=== PATIENT | male | born 1995 | race Caucasian/White ===

== ENCOUNTER → 2018-04-09 | Outpatient (CLI) | payer OTHER ==
--- NOTE | 2018-04-09 18:32 | MR ---
EXAMINATION TYPE: MR knee RT wo con DATE OF EXAM: 04/09/2018 COMPARISON: NONE HISTORY: Right knee pain per order. All over pain and swelling per patient. TECHNIQUE: Multiplanar, multisequence images of the knee is performed without IV contrast. FINDINGS: MEDIAL MENISCUS: Anterior and posterior horns are intact without tear. LATERAL MENISCUS: Anterior and posterior horns are intact without tear. CRUCIATE LIGAMENTS: The anterior and posterior cruciate ligaments are intact and unremarkable. COLLATERAL LIGAMENTS: The medial collateral ligament and lateral collateral ligament complex are inta ct and unremarkable. EXTENSOR MECHANISM: Visualized quadriceps and patellar tendons are intact. EFFUSION: No significant suprapatellar joint effusion. POPLITEAL CYST: No popliteal/dee cyst. TRICOMPARTMENT SPACES: Tricompartment joint spaces are preserved. No significant spurring is present. CARTILAGE: Tricompartment articular cartilage is maintained. BONE MARROW SIGNAL: No focal abnormal marrow signal is appreciated. OTHER: No additional significant abnormality is appreciated. IMPRESSION: No meniscal or ligamentous tear is seen. Unremarkable study.
== END | disposition home or self-care (01) ==
LOC: RADMRIMAIN 08:54
PROVIDERS: ATTEND Internal Medicine
DX: M25.561 Pain in right knee (principal)

== ENCOUNTER → 2018-05-17 | Outpatient (CLI) | payer OTHER ==
--- NOTE | 2018-05-17 15:04 | XR ---
Left foot and left leg HISTORY: Trauma and pain 3 views of the left foot and 2 views of the left leg submitted. The left foot show soft tissue swelling. Alignment, joint spaces, bone mineralization are maintained with exception of the tarsal metatarsal joint of the first digit, suspect there may be bridging osteo phytes. Left leg shows no fracture or dislocation, soft tissue swelling noted. IMPRESSION: Soft tissue swelling. No acute fracture or dislocation.
== END ==
LOC: RADXRMAIN 11:41
PROVIDERS: ATTEND Emergency Medicine
DX: M79.89 Other specified soft tissue disorders (principal)

== ENCOUNTER → 2018-05-23 | Outpatient (CLI) | payer OTHER ==
--- NOTE | 2018-05-23 09:51 | CT ---
EXAMINATION TYPE: CT foot LT wo con DATE OF EXAM: 05/23/2018 COMPARISON: Radiograph 05/17/2018 HISTORY: 22-year-old male Left mid foot pain post injury 7 days ago TECHNIQUE: Contiguous axial scanning of the left foot without IV contrast. Coronal and sagittal recon structions performed. CT DLP: 202 mGycm Automated exposure control for dose reduction was used. FINDINGS: There is an os intermetatarseum interposed along the dorsal aspect of the first-second intermetatarsa l joint There is some lateral sided soft tissue swelling overlying the fifth metatarsal head could represent early bunion formation. Os trigonum incidentally noted. No acute fracture, subluxation, or dislocation seen. IMPRESSION: 1. CORTICATED BONE FRAGMENT INTERPOSED ALONG THE DORSAL ASPECT OF THE FIRST-SECOND INTERMETATARSAL FILI INT COMPATIBLE WITH ACCESSORY OSSICLE, OS INTERMETATARSEUM. 2. SOME SOFT TISSUE SWELLING LATERALLY OVERLYING THE FIFTH METATARSAL HEAD COULD REPRESENT EARLY BUNI ONETTE FORMATION. 3. NO ACUTE OSSEOUS ABNORMALITY SEEN.
== END | disposition home or self-care (01) ==
LOC: RADCTMAIN 09:16
PROVIDERS: ATTEND Emergency Medicine
DX: M79.89 Other specified soft tissue disorders (principal)

== ENCOUNTER → 2018-06-14 | Outpatient (CLI) | payer OTHER ==
--- NOTE | 2018-06-15 01:31 | MR ---
EXAMINATION TYPE: MR foot LT wo con DATE OF EXAM: 06/14/2018 COMPARISON: None HISTORY: Left foot pain for one month Standard multiplanar, multisequence MRI departmental protocol Multiplanar, multisequence images of the left foot were acquired. FINDINGS: Plantar fascia appears normal. Achilles tendon is intact. There is intact medial and latera l flexor tendons of the foot. Extensor tendons appear intact. I see no bony destructive process. Dyer tarsals are intact. There is no evidence of a fracture. There is subcutaneous edema in the forefoot. The collateral ligaments of the ankle are intact. Ankle mortise is anatomic. The interphalangeal join t spaces appear fairly normal. There is no subluxation. I see no focal bone destruction. There is no evidence of a soft tissue mass. IMPRESSION: There is subcutaneous edema over the forefoot. No evidence of ligamentous or tendon tear. No fracture .
== END ==
LOC: RADMRIMAIN 19:54
PROVIDERS: ATTEND Emergency Medicine
DX: R60.9 Edema, unspecified (principal)

== ENCOUNTER → 2019-08-01 | Outpatient (CLI) | payer BC | END | disposition home or self-care (01) | LOC: CPPFTMAIN 12:44 | PROVIDERS: ATTEND Nurse Practitioner Adult Health | DX: J45.909 Unspecified asthma, uncomplicated (principal); G70.9 Myoneural disorder, unspecified; R04.2 Hemoptysis | CPT/HCPCS: 94060; 94726; 94729 ==

== ENCOUNTER → 2019-08-01 | Outpatient (CLI) | payer BC ==
[2019-08-01 15:02] LABS: Basophils # (A) 0.1 k/uL (0-0.2); Basophils % (A) 1 %; Eosinophils # (A) 0.3 k/uL (0-0.7); Eosinophils % (A) 4 %; HCT 46.6 % (39.0-53.0); HGB 15.3 gm/dL (13.0-17.5); Lymphocytes # (A) 1.8 k/uL (1.0-4.8); Lymphocytes % (A) 25 %; MCHC 32.9 g/dL (31.0-37.0); MCV 88.2 fL (80.0-100.0); Monocytes # (A) 0.3 k/uL (0-1.0); Monocytes % (A) 5 %; Neutrophils # (A) 4.8 k/uL (1.3-7.7); Neutrophils % (A) 64 %; Platelet Count 246 k/uL (150-450); RBC 5.28 m/uL (4.30-5.90); RDW 12.6 % (11.5-15.5); WBC 7.5 k/uL (3.8-10.6)
--- NOTE | 2019-08-01 15:32 | XR ---
EXAMINATION TYPE: XR chest 2V DATE OF EXAM: 08/01/2019 COMPARISON: Chest x-ray 09/10/2015 HISTORY: R04.2, hemoptysis TECHNIQUE: Frontal and lateral views of the chest are obtained. FINDINGS: There is no focal air space opacity, pleural effusion, or pneumothorax seen. The cardiac silhouette size is within normal limits. The osseous structures are intact. IMPRESSION: No acute cardiopulmonary process.
[2019-08-01 18:06] LABS: Erythrocyte Sedimentation Rate 8 mm/hr (0-15)
[2019-08-01 19:21] LABS: BUN/Creat Ratio 11.25 Ratio (12.00-20.00); C Reactive Protein <0.4 mg/dL (0.0-0.8); Calcium 9.5 mg/dL (8.7-10.3); Carbon Dioxide 27.3 mmol/L (21.6-31.8); Chloride 105 mmol/L (96-109); Chol/HDL Ratio 3.56; Cholesterol 185 mg/dL (0-200); Glucose 100 mg/dL (70-110); LDL Cholesterol,Calculated 113.6 mg/dL (0.0-131.0); Non-African American GFR(CKD) 126.8 (60.0-200.0); Sodium 140 mmol/L (135-145)
== END | disposition home or self-care (01) ==
LOC: LABWHC1 13:44
PROVIDERS: ATTEND Nurse Practitioner Adult Health
DX: R04.2 Hemoptysis (principal); J45.991 Cough variant asthma
CPT/HCPCS: 36415; 71046; 80048; 80061; 83970; 85025; 85652; 86140

== ENCOUNTER → 2019-08-14 | Outpatient (CLI) | payer BC ==
--- NOTE | 2019-08-15 03:43 | US ---
EXAMINATION TYPE: US thyroid st tissue head/neck DATE OF EXAM: 08/14/2019 COMPARISON: NONE CLINICAL HISTORY: 23-year-old male R94.6 Abnormal thyroid lab R22.0. Swelling, mass. TECHNIQUE: Multiple sonographic images of the thyroid gland are obtained. FINDINGS: GLAND SIZE: Right Lobe: 5.3 x 1.8 x 1.4 cm Overall Parenchyma: homogenous Left Lobe: 4.8 x 0.9 x 1.4 cm Overall Parenchyma: homogeneous Isthmus Thickness: 0.2 cm NODULES RIGHT: # of nodules measured on right: 0 LEFT: # of nodules measured on left: 0 ISTHMUS: # of nodules measured in the isthmus: 0 Bilateral neck scanned, no evidence of lymphadenopathy. Scientific Informatics Leader notes: Submandibular on left at patients area of pain also scanned, no abnormality noted. IMPRESSION: 1. Borderline to mild thyromegaly without discrete nodule. 2. Additional targeted scanning along the left submandibular region at the site of patient's pain. No discrete sonographic abnormality is noted in this region.
== END | disposition home or self-care (01) ==
LOC: RADUSWWP 16:30
PROVIDERS: ATTEND Nurse Practitioner Adult Health
DX: E01.0 Iodine-deficiency related diffuse (endemic) goiter (principal)
CPT/HCPCS: 76536

== ENCOUNTER → 2020-05-20 | Outpatient (CLI) | payer BC, OTHER | END | disposition home or self-care (01) | LOC: LABWHC1 12:11 | PROVIDERS: ATTEND Family Medicine | DX: Z20.828 Contact with and (suspected) exposure to other viral communicable diseases (principal) | CPT/HCPCS: U0003; C9803 ==

== ENCOUNTER → 2020-12-06 | Outpatient (CLI) | payer BC | END | disposition home or self-care (01) | LOC: LABWHC1 15:32 | PROVIDERS: ATTEND Nurse Practitioner Adult Health | DX: Z20.822 Contact with and (suspected) exposure to COVID-19 (principal); R50.9 Fever, unspecified; R06.02 Shortness of breath; R09.81 Nasal congestion | CPT/HCPCS: U0003; C9803; U0005 ==

== ENCOUNTER → 2020-12-12 | Outpatient (CLI) | payer BC ==
--- NOTE | 2020-12-12 12:42 | XR ---
EXAMINATION TYPE: XR chest 2V DATE OF EXAM: 12/12/2020 COMPARISON: 08/01/2019 TECHNIQUE: PA and lateral views submitted. HISTORY: Cough FINDINGS: The lungs are clear and there is no pneumothorax, pleural effusion, or focal pneumonia. Heart size normal. No overt failure. Interstitial markings are stable. IMPRESSION: 1. No acute process.
== END | disposition home or self-care (01) ==
LOC: RADXRMAIN 12:14
PROVIDERS: ATTEND Internal Medicine
DX: J45.901 Unspecified asthma with (acute) exacerbation (principal)
CPT/HCPCS: 71046

== ENCOUNTER 2021-03-01 14:42 | Emergency (ER) | payer BC ==
[2021-03-01 14:57] VITALS: RESP 18; TEMP 98.4
--- NOTE | 2021-03-01 15:14 | ED ---
General Adult HPI - General Chief complaint: Chest Pain Stated complaint: chest pain, coughing up blood Time Seen by Provider: 03/01/21 15:13 Source: patient Mode of arrival: wheelchair Limitations: no limitations - History of Present Illness Initial comments: Patient presents to the ED complaining of having intermittent chest pain for the past couple of days. Patient states that his chest pain is in his central chest and is worse when eating. Patient denies having any chest pain currently. Patient states that he has a history of acid reflux, and he states that he has had similar chest pain intermittently over the past 4 years or so. Patient s tates that he only came to the ED today because his girlfriend made him. Patient states that he is on medication for his acid reflux. Patient also states that he has had a cough for the past couple of months, and he states he has noticed blood at times when coughing. Patient also states that he has noted blood in his stool intermittently over the past couple months. Patient denies trauma or injury, fever or chills, headache, focal neuro deficit, neck/arm/jaw/back pain, pleuritic pain, dyspnea, palpitations, dizziness, nausea/vomiting/diaphoresis, abdominal pain, diarrhea or constipation, dysuria or hematuria, urinary symptoms, leg or calf swelling or pain, or any other symptoms or complaints. Patient denies excessive NSAID or aspirin use. Patient also denies anticoagulant medication use. - Related Data Home Medications Medication Instructions Recorded Confirmed Citalopram Hydrobromide [CeleXA] 30 mg PO DAILY 03/01/21 03/01/21 Pantoprazole Sodium [Protonix] 40 mg PO DAILY 03/01/21 03/01/21 Allergies Allergy/AdvReac Type Severity Reaction Status Date / Time No Known Allergies Allergy Verified 03/01/21 15:32 Review of Systems ROS Statement: Those systems with pertinent positive or pertinent negative responses have been documented in the HPI. ROS Other: All systems not noted in ROS Statement are negative. Past Medical History Past Medical History: No Reported History History of Any Multi-Drug Resistant Organisms: MRSA Date of last positivie culture/infection: 2008 MDRO Source:: left leg Past Surgical History: No Surgical Hx Reported Additional Past Surgical History / Comment(s): retinal detachment Past Psychological History: ADD/ADHD Smoking Status: Never smoker Past Alcohol Use History: None Reported Past Drug Use History: Marijuana General Exam Limitations: no limitations General appearance: alert, in no apparent distress Head exam: Present: atraumatic, normocephalic Eye exam: Present: normal appearance, EOMI ENT exam: Present: mucous membranes moist Neck exam: Present: other (Trachea is in midline) Respiratory exam: Present: normal lung sounds bilaterally. Absent: respiratory distress, wheezes, rales, rhonchi, stridor, chest wall tenderness Cardiovascular Exam: Present: regular rate, normal rhythm, normal heart sounds, other (Normal radial pulses bilaterally) GI/Abdominal exam: Present: soft. Absent: distended, tenderness, guarding Extremities exam: Present: other (Negative Homans sign bilaterally). Absent: tenderness, pedal edema, calf tenderness Neurological exam: Present: alert, oriented X3. Absent: motor sensory deficit Psychiatric exam: Present: normal affect, normal mood Skin exam: Present: warm, dry, intact, normal color Course Vital Signs 03/01/21 03/01/21 03/01/21 14:55 15:56 16:00 Temperature 98.4 F Pulse Rate 113 H 80 Respiratory 18 18 18 Rate Blood Pressure 128/85 109/66 O2 Sat by Pulse 98 97 Oximetry - Reevaluation(s) Reevaluation #1: 03/01/21 17:27 Patient remains alert and breathing comfortably with a normal room air oxygen saturation. Patient's tachycardia has resolved. Patient continues to deny having any chest pain or symptoms while in the ED. Patient is aware of his test results, and he feels comfortable going home at this time. Patient was coun seled about chest pain, as well as hemoptysis and GI bleeding. Patient was clearly explained return and follow-up instructions, and he was instructed to have a low threshold for return to the emergency department should his symptoms worsen. Patient was also instructed to follow up closely with his primary care provider. Patient feels comfortable with this plan. EKG Findings - EKG Comments: EKG Findings:: Normal sinus rhythm, ventricular rate of 79 bpm, no ectopy, normal MN and QRS intervals, normal QT interval, normal axis, no ST or T-wave abnormality Medical Decision Making - Medical Decision Making Patient's EKG, chest x-ray and labs are all fairly unremarkable. Patient's vital signs are reassuring. Patient's d-dimer and troponin are negative. Patient's hemoglobin and BUN are within normal limits. I do not suspect any significant hemorrhaging or an emergent medical condition at this time. - Lab Data Result diagrams: 03/01/21 15:53 03/01/21 15:53 Lab Results 03/01/21 03/01/21 03/01/21 Range/Units 15:53 15:53 15:53 WBC 9.5 (3.8-10.6) k/uL RBC 4.60 (4.30-5.90) m/uL Hgb 14.2 (13.0-17.5) gm/dL Hct 41.5 (39.0-53.0) % MCV 90.3 (80.0-100.0) fL MCH 30.9 (25.0-35.0) pg MCHC 34.3 (31.0-37.0) g/dL RDW 12.6 (11.5-15.5) % Plt Count 250 (150-450) k/uL MPV 6.6 Neutrophils % 70 % Lymphocytes % 16 % Monocytes % 4 % Eosinophils % 8 % Basophils % 1 % Neutrophils # 6.7 (1.3-7.7) k/uL Lymphocytes # 1.5 (1.0-4.8) k/uL Monocytes # 0.4 (0-1.0) k/uL Eosinophils # 0.7 (0-0.7) k/uL Basophils # 0.1 (0-0.2) k/uL PT 10.1 (9.0-12.0) sec INR 0.9 (<1.2) APTT 22.1 (22.0-30.0) sec D-Dimer 0.31 (<0.60) mg/L FEU Sodium 137 (137-145) mmol/L Potassium 4.0 (3.5-5.1) mmol/L Chloride 106 (98-107) mmol/L Carbon Dioxide 23 (22-30) mmol/L Anion Gap 8 mmol/L BUN 12 (9-20) mg/dL Creatinine 0.64 L (0.66-1.25) mg/dL Est GFR (CKD-EPI)AfAm >90 (>60 ml/min/1.73 sqM) Est GFR (CKD-EPI)NonAf >90 (>60 ml/min/1.73 sqM) Glucose 94 (74-99) mg/dL Calcium 9.8 (8.4-10.2) mg/dL Total Bilirubin 0.3 (0.2-1.3) mg/dL AST 28 (17-59) U/L ALT 37 (4-49) U/L Alkaline Phosphatase 56 (38-126) U/L Troponin I (0.000-0.034) ng/mL NT-Pro-B Natriuret Pep pg/mL Total Protein 6.6 (6.3-8.2) g/dL Albumin 3.8 (3.5-5.0) g/dL 03/01/21 03/01/21 Range/Units 15:53 15:53 WBC (3.8-10.6) k/uL RBC (4.30-5.90) m/uL Hgb (13.0-17.5) gm/dL Hct (39.0-53.0) % MCV (80.0-100.0) fL MCH (25.0-35.0) pg MCHC (31.0-37.0) g/dL RDW (11.5-15.5) % Plt Count (150-450) k/uL MPV Neutrophils % % Lymphocytes % % Monocytes % % Eosinophils % % Basophils % % Neutrophils # (1.3-7.7) k/uL Lymphocytes # (1.0-4.8) k/uL Monocytes # (0-1.0) k/uL Eosinophils # (0-0.7) k/uL Basophils # (0-0.2) k/uL PT (9.0-12.0) sec INR (<1.2) APTT (22.0-30.0) sec D-Dimer (<0.60) mg/L FEU Sodium (137-145) mmol/L Potassium (3.5-5.1) mmol/L Chloride (98-107) mmol/L Carbon Dioxide (22-30) mmol/L Anion Gap mmol/L BUN (9-20) mg/dL Creatinine (0.66-1.25) mg/dL Est GFR (CKD-EPI)AfAm (>60 ml/min/1.73 sqM) Est GFR (CKD-EPI)NonAf (>60 ml/min/1.73 sqM) Glucose (74-99) mg/dL Calcium (8.4-10.2) mg/dL Total Bilirubin (0.2-1.3) mg/dL AST (17-59) U/L ALT (4-49) U/L Alkaline Phosphatase (38-126) U/L Troponin I <0.012 (0.000-0.034) ng/mL NT-Pro-B Natriuret Pep <11 pg/mL Total Protein (6.3-8.2) g/dL Albumin (3.5-5.0) g/dL - Radiology Data Radiology results: report reviewed (Chest x-ray: Normal chest) Disposition Clinical Impression: Chest pain Narrative: Reported hemoptysis and rectal bleeding Disposition: HOME SELF-CARE Condition: Stable Instructions (If sedation given, give patient instructions): Chest Pain (ED), Gastrointestinal Bleeding (ED), Hemoptysis (ED) Additional Instructions: Return to the ER immediately should you develop new or worsening pain, increased shortness of breath, increased bleeding, feeling dizzy or faint, a fever, or new or worsening symptoms. Follow up closely with your primary care provider. Is patient prescribed a controlled substance at d/c from ED?: No Referrals: Solitario Merrill MD [Primary Care Provider] - 1-2 days Time of Disposition: 17:29
[2021-03-01 15:59] LABS: Basophils # (A) 0.1 k/uL (0-0.2); Basophils % (A) 1 %; Eosinophils # (A) 0.7 k/uL (0-0.7); Eosinophils % (A) 8 %; HCT 41.5 % (39.0-53.0); HGB 14.2 gm/dL (13.0-17.5); Lymphocytes # (A) 1.5 k/uL (1.0-4.8); Lymphocytes % (A) 16 %; MCH 30.9 pg (25.0-35.0); MCHC 34.3 g/dL (31.0-37.0); MCV 90.3 fL (80.0-100.0); Mean Platelet Volume 6.6; Monocytes # (A) 0.4 k/uL (0-1.0); Monocytes % (A) 4 %; Neutrophils # (A) 6.7 k/uL (1.3-7.7); Neutrophils % (A) 70 %; Platelet Count 250 k/uL (150-450); RDW 12.6 % (11.5-15.5); WBC 9.5 k/uL (3.8-10.6)
[2021-03-01 16:12] LABS: ALT 37 U/L (4-49); AST 28 U/L (17-59); African American GFR (CKD) >90 (>60 ml/min/1.73 sqM); Albumin 3.8 g/dL (3.5-5.0); Alkaline Phosphatase 56 U/L (38-126); Anion Gap 8 mmol/L; Blood Urea Nitrogen 12 mg/dL (9-20); Calcium 9.8 mg/dL (8.4-10.2); Carbon Dioxide 23 mmol/L (22-30); Chloride 106 mmol/L (98-107); Glucose 94 mg/dL (74-99); Non-African American GFR(CKD) >90 (>60 ml/min/1.73 sqM); Sodium 137 mmol/L (137-145); Total Bilirubin 0.3 mg/dL (0.2-1.3); Total Protein 6.6 g/dL (6.3-8.2)
[2021-03-01 16:20] LABS: INR 0.9 (<1.2); Partial Thromboplastin Time 22.1 sec (22.0-30.0); Prothrombin Time 10.1 sec (9.0-12.0)
--- NOTE | 2021-03-01 16:26 | XR ---
EXAMINATION TYPE: XR chest 2V DATE OF EXAM: 03/01/2021 COMPARISON: 12/12/2020 HISTORY: Chest pain TECHNIQUE: 2 views FINDINGS: Heart and mediastinum are normal. Lungs are clear. Diaphragm is normal. Bony thorax appears normal. IMPRESSION: Normal chest.
[2021-03-01 17:39] VITALS: BP 122/86; PULSE 73
== END 2021-03-01 17:39 | disposition home or self-care (01) ==
LOC: EC 14:42
DX: R07.89 Other chest pain (principal); K21.9 Gastro-esophageal reflux disease without esophagitis; Z79.899 Other long term (current) drug therapy
CPT/HCPCS: 36415; 71046; 80053; 83880; 84484; 85025; 85379; 85610; 85730; 93005; 99285

== ENCOUNTER 2021-04-07 13:12 | Emergency (ER) | payer BC ==
[2021-04-07 15:23] VITALS: RESP 18; TEMP 98.5
[2021-04-07 15:37] LABS: Basophils # (A) 0.1 k/uL (0-0.2); Basophils % (A) 1 %; Eosinophils # (A) 0.5 k/uL (0-0.7); Eosinophils % (A) 7 %; HCT 42.8 % (39.0-53.0); HGB 14.8 gm/dL (13.0-17.5); Lymphocytes # (A) 1.7 k/uL (1.0-4.8); Lymphocytes % (A) 22 %; MCH 29.9 pg (25.0-35.0); MCHC 34.5 g/dL (31.0-37.0); MCV 86.6 fL (80.0-100.0); Mean Platelet Volume 6.8; Monocytes # (A) 0.3 k/uL (0-1.0); Monocytes % (A) 5 %; Neutrophils # (A) 4.8 k/uL (1.3-7.7); Neutrophils % (A) 64 %; Platelet Count 312 k/uL (150-450); RBC 4.94 m/uL (4.30-5.90); RDW 12.4 % (11.5-15.5); WBC 7.5 k/uL (3.8-10.6)
[2021-04-07 15:51] LABS: ALT 30 U/L (4-49); AST 26 U/L (17-59); African American GFR (CKD) >90 (>60 ml/min/1.73 sqM); Albumin 4.1 g/dL (3.5-5.0); Alkaline Phosphatase 50 U/L (38-126); Anion Gap 8 mmol/L; Blood Urea Nitrogen 10 mg/dL (9-20); Calcium 9.4 mg/dL (8.4-10.2); Carbon Dioxide 23 mmol/L (22-30); Chloride 107 mmol/L (98-107); Glucose 91 mg/dL (74-99); Non-African American GFR(CKD) >90 (>60 ml/min/1.73 sqM); Potassium 4.2 mmol/L (3.5-5.1); Sodium 138 mmol/L (137-145); Total Bilirubin 0.3 mg/dL (0.2-1.3)
--- NOTE | 2021-04-07 16:50 | ED ---
General Adult HPI - General Chief complaint: GI Bleed Stated complaint: Rectal Bleeding Time Seen by Provider: 04/07/21 16:37 Source: patient, family Limitations: no limitations - History of Present Illness Initial comments: Dictation was produced using [employer] dictation software. please excuse any grammatical, word or spelling errors. Chief Complaint: 25-year-old male presents with black stools History of Present Illness: 25-year-old male who presents to the emergency Department with on-and-off episodes of black stools. Patient was diagnosed with a peptic ulcer couple months ago seen on endoscope done at [facility]. Patient has been taking Carafate recently. He has been having on and off black stools over the last several weeks. He contacted his primary care doctor who instructed patient to come to the emergency room to have his hemoglobin check. Denies any nausea vomiting or lightheadedness. He has no pain. The ROS documented in this emergency department record has been reviewed and confirmed by me. Those systems with pertinent positive or negative responses have been documented in the HPI. All other systems are other negative and/or noncontributory. PHYSICAL EXAM: General Impression: Alert and oriented x3, not in acute distress HEENT: Normocephalic atraumatic, extra-ocular movements intact, pupils equal and reactive to light bilaterally, mucous membranes moist. Cardiovascular: Heart regular rate and rhythm Chest: Able to complete full sentences, no retractions, no tachypnea Musculoskeletal: Pulses present and equal in all extremities, no peripheral edema Motor: no focal deficits noted Neurological: CN II-XII grossly intact, no focal motor or sensory deficits noted Skin: Intact with no visualized rashes Psych: Normal affect and mood ED course: 25-year-old male presents with black stools. He has history of pep tic ulcer disease. Vital signs upon arrival are within acceptable limits. He has no symptoms of anemia. Rectal exam deferred. He was however able to provide a stool sample for stool guaiac card. Labs are unremarkable. Hemoglobin is 14.8. Metabolic panel is unremarkable.Stool occult Blood is n egative. Patient will be discharged. Patient advised to follow-up with primary care doctor. return precautions discussed. Patient reevaluated at bedside at 5:20 PM found to be in stable medical condition. - Related Data Home Medications Medication Instructions Recorded Confirmed Citalopram Hydrobromide [CeleXA] 30 mg PO DAILY 03/01/21 04/07/21 Pantoprazole Sodium [Protonix] 40 mg PO DAILY 03/01/21 04/07/21 Sucralfate [Carafate] 1 gm PO ACHS 04/07/21 04/07/21 Allergies Allergy/AdvReac Type Severity Reaction Status Date / Time No Known Allergies Allergy Verified 04/07/21 16:53 Review of Systems ROS Statement: Those systems with pertinent positive or pertinent negative responses have been documented in the HPI. ROS Other: All systems not noted in ROS Statement are negative. Past Medical History Past Medical History: No Reported History Additional Past Medical History / Comment(s): stomach ulcer History of Any Multi-Drug Resistant Organisms: MRSA Date of last positivie culture/infection: 2008 MDRO Source:: left leg Past Surgical History: No Surgical Hx Reported Additional Past Surgical History / Comment(s): retinal detachment Past Psychological History: ADD/ADHD Smoking Status: Never smoker Past Alcohol Use History: Daily Past Drug Use History: Marijuana General Exam Limitations: no limitations Course Vital Signs 04/07/21 15:18 Temperature 98.5 F Pulse Rate 68 Respiratory 18 Rate Blood Pressure 148/108 O2 Sat by Pulse 98 Oximetry Medical Decision Making - Lab Data Result diagrams: 04/07/21 15:32 04/07/21 15:32 Lab Results 04/07/21 04/07/21 04/07/21 Range/Units 15:32 15:32 17:05 WBC 7.5 (3.8-10.6) k/uL RBC 4.94 (4.30-5.90) m/uL Hgb 14.8 (13.0-17.5) gm/dL Hct 42.8 (39.0-53.0) % MCV 86.6 (80.0-100.0) fL MCH 29.9 (25.0-35.0) pg MCHC 34.5 (31.0-37.0) g/dL RDW 12.4 (11.5-15.5) % Plt Count 312 (150-450) k/uL MPV 6.8 Neutrophils % 64 % Lymphocytes % 22 % Monocytes % 5 % Eosinophils % 7 % Basophils % 1 % Neutrophils # 4.8 (1.3-7.7) k/uL Lymphocytes # 1.7 (1.0-4.8) k/uL Monocytes # 0.3 (0-1.0) k/uL Eosinophils # 0.5 (0-0.7) k/uL Basophils # 0.1 (0-0.2) k/uL Sodium 138 (137-145) mmol/L Potassium 4.2 (3.5-5.1) mmol/L Chloride 107 (98-107) mmol/L Carbon Dioxide 23 (22-30) mmol/L Anion Gap 8 mmol/L BUN 10 (9-20) mg/dL Creatinine 0.65 L (0.66-1.25) mg/dL Est GFR (CKD-EPI)AfAm >90 (>60 ml/min/1.73 sqM) Est GFR (CKD-EPI)NonAf >90 (>60 ml/min/1.73 sqM) Glucose 91 (74-99) mg/dL Calcium 9.4 (8.4-10.2) mg/dL Total Bilirubin 0.3 (0.2-1.3) mg/dL AST 26 (17-59) U/L ALT 30 (4-49) U/L Alkaline Phosphatase 50 (38-126) U/L Total Protein 7.0 (6.3-8.2) g/dL Albumin 4.1 (3.5-5.0) g/dL Stool Occult Blood Negative (Negative) Disposition Clinical Impression: Black stools Disposition: HOME SELF-CARE Condition: Good Instructions (If sedation given, give patient instructions): Gastrointestinal Bleeding (ED) Is patient prescribed a controlled substance at d/c from ED?: No Referrals: Solitario Merrill MD [Primary Care Provider] - 1-2 days
[2021-04-07 17:38] VITALS: BP 121/72; PULSE 75
== END 2021-04-07 17:38 | disposition home or self-care (01) ==
LOC: EC 13:12
DX: R19.5 Other fecal abnormalities (principal)
CPT/HCPCS: 36415; 80053; 82272; 85025; 99283

== ENCOUNTER 2022-04-29 13:08 | Emergency (ER) | payer BC ==
[2022-04-29] MEDS ORDERED: HYDROmorphone 0.5 MG/0.5 ML SYRINGE IVP STA (13:58)
[2022-04-29 14:22] LABS: Basophils % (A) 0 %; Eosinophils # (A) 0.5 k/uL (0-0.7); Eosinophils % (A) 4 %; HGB 14.6 gm/dL (13.0-17.5); Lymphocytes % (A) 8 %; MCH 29.2 pg (25.0-35.0); MCV 85.8 fL (80.0-100.0); Mean Platelet Volume 7.1; Monocytes # (A) 0.2 k/uL (0-1.0); Monocytes % (A) 1 %; Neutrophils # (A) 10.5 k/uL (1.3-7.7); Neutrophils % (A) 86 %; Platelet Count 270 k/uL (150-450); RBC 5.01 m/uL (4.30-5.90); RDW 14.3 % (11.5-15.5); WBC 12.2 k/uL (3.8-10.6)
[2022-04-29] MEDS ORDERED: ACETAMINOPHEN TAB 500 MG TAB PO STA ×2 (14:24→16:57)
[2022-04-29 14:30] LABS: Partial Thromboplastin Time 23.6 sec (22.0-30.0); Prothrombin Time 10.5 sec (9.0-12.0)
[2022-04-29 14:39] LABS: ALT 40 U/L (4-49); AST 30 U/L (17-59); African American GFR (CKD) >90 (>60 ml/min/1.73 sqM); Albumin 4.5 g/dL (3.5-5.0); Alkaline Phosphatase 49 U/L (38-126); Amylase 54 U/L (30-110); Anion Gap 10 mmol/L; Blood Urea Nitrogen 13 mg/dL (9-20); Calcium 9.1 mg/dL (8.4-10.2); Carbon Dioxide 29 mmol/L (22-30); Chloride 102 mmol/L (98-107); Glucose 86 mg/dL (74-99); Lipase 26 U/L (23-300); Magnesium 1.7 mg/dL (1.6-2.3); Non-African American GFR(CKD) >90 (>60 ml/min/1.73 sqM); Potassium 3.7 mmol/L (3.5-5.1); Sodium 141 mmol/L (137-145); Total Bilirubin 0.4 mg/dL (0.2-1.3); Total Protein 7.2 g/dL (6.3-8.2)
--- NOTE | 2022-04-29 14:46 | ED ---
Chest Pain HPI - General Chief Complaint: Chest Pain Stated Complaint: chest tightness - abnormal EEG Time Seen by Provider: 04/29/22 13:44 Source: patient, RN notes reviewed Mode of arrival: ambulatory Limitations: no limitations - History of Present Illness Initial Comments: This is a 26-year-old male who presents to the emergency department for chest pain and shortness of breath. He had an EGD this morning for evaluation of peptic ulcers. This was done in [place], [place]. Shortly after the procedure, he developed severe chest pain with the difficulty breathing. Denies any nausea or vomiting. He has had 2 other EGDs in the past and has never had similar symptoms. He was told that he may have nausea and a sore throat after the procedure, but was not told that he should experience shortness of breath or chest pain. Denies any fevers, chills, sore throat, palpitations, abdominal pain, nausea, vomiting, diarrhea, back pain, or headaches. MD Complaint: chest pain Pain Location: substernal Anginal Symptoms: dyspnea - Related Data Home Medications Medication Instructions Recorded Confirmed Citalopram Hydrobromide [CeleXA] 30 mg PO DAILY 03/01/21 04/07/21 Pantoprazole Sodium [Protonix] 40 mg PO DAILY 03/01/21 04/07/21 Sucralfate [Carafate] 1 gm PO ACHS 04/07/21 04/07/21 Previous Rx's Medication Instructions Recorded Levofloxacin [Levaquin] 750 mg PO DAILY 10 Days #10 tab 04/29/22 clindamycin HCL 300 mg PO Q6H 10 Days #40 capsule 04/29/22 predniSONE 50 mg PO DAILY 5 Days #5 tablet 04/29/22 Allergies Allergy/AdvReac Type Severity Reaction Status Date / Time No Known Allergies Allergy Verified 04/29/22 13:43 Review of Systems ROS Statement: Those systems with pertinent positive or pertinent negative responses have been documented in the HPI. ROS Other: All systems not noted in ROS Statement are negative. EKG Findings - EKG Comments: EKG Findings:: Sinus rhythm. Normal axis. Ventricular rate 89 bpm, MN interval 125 ms, QRS duration 83 ms, QTC 409 ms. Past Medical History Past Medical History: No Reported History Additional Past Medical History / Comment(s): stomach ulcer History of Any Multi-Drug Resistant Organisms: MRSA Date of last positivie culture/infection: 2008 MDRO Source:: left leg Past Surgical History: No Surgical Hx Reported Additional Past Surgical History / Comment(s): retinal detachment Past Psychological History: ADD/ADHD, Anxiety Smoking Status: Never smoker Past Alcohol Use History: Daily Past Drug Use History: Marijuana General Exam Limitations: no limitations General appearance: alert, in distress Head exam: Present: atraumatic, normocephalic, normal inspection Respiratory exam: Present: normal lung sounds bilaterally, chest wall tenderness. Absent: respiratory distress, wheezes, rales, rhonchi, stridor Cardiovascular Exam: Present: regular rate, normal rhythm, normal heart sounds. Absent: systolic murmur, diastolic murmur, rubs, gallop, clicks GI/Abdominal exam: Present: soft, normal bowel sounds. Absent: distended, tenderness, guarding, rebound, rigid Neurological exam: Present: alert, oriented X3, CN II-XII intact Psychiatric exam: Present: normal affect, normal mood Skin exam: Present: warm, dry, intact, normal color. Absent: rash Course Vital Signs 04/29/22 04/29/22 04/29/22 13:40 14:29 14:47 Temperature 97.6 F 100.9 F H Pulse Rate 96 108 H Respiratory 16 20 Rate Blood Pressure 134/83 114/69 O2 Sat by Pulse 96 98 Oximetry 04/29/22 17:10 Temperature 101.1 F H Pulse Rate 74 Respiratory 18 Rate Blood Pressure 109/57 O2 Sat by Pulse 98 Oximetry Chest Pain MDM - MDM This is a 26-year-old male who presents to the emergency department for chest pain. Lab work obtained reveals mild leukocytosis. Patient noted to be febrile at 100.9F. He was subsequently given a dose of Tylenol. His pain was well controlled in the emergency department. Computed tomography scan of the chest and abdomen obtained due to the symptoms and recent procedure. Interpretation of this reveals a left lower lobe infiltrate suggestive of an aspiration pneumonia. Findings discussed with the patient. His temperature was rechecked at 101.1F. He was given an additional dose of Tylenol, as he is unable to take ibuprofen. Prescription for clindamycin, Levaquin, and prednisone provided. He was given a dose of Decadron, Flagyl, and cefepime in the emergency department prior to discharge. He'll follow-up with his primary care provider this week to reevaluate his symptoms and ensure the resolution of the pneumonia. Advise he continue to take Tylenol as needed for any additional fevers. Return precautions reviewed in depth, the patient is instructed to return to the emergency department with any new, worsening, or concerning symptoms. Patient verbalized understanding. This case was discussed in detail with the attending ED physician. Presentation, findings, and treatment plan discussed in detail as well. Disposition Clinical Impression: Aspiration pneumonia Disposition: HOME SELF-CARE Instructions (If sedation given, give patient instructions): Aspiration Pneumonia (DC) Additional Instructions: Return to the emergency department with any new, worsening, or concerning sym ptoms. Take both antibiotics as prescribed for 10 days. Take the prednisone as prescribed for 5 days. Follow up with your primary care provider in 1-2 days to ensure that the pneumonia has resolved. Prescriptions: clindamycin HCL 300 mg PO Q6H 10 Days #40 capsule Levofloxacin [Levaquin] 750 mg PO DAILY 10 Days #10 tab predniSONE 50 mg PO DAILY 5 Days #5 tablet Is patient prescribed a controlled substance at d/c from ED?: No Referrals: Solitario Merrill MD [Primary Care Provider] - 1-2 days
--- NOTE | 2022-04-29 14:52 | CT ---
EXAMINATION TYPE: CT chest abdomen w con DATE OF EXAM: 04/29/2022 COMPARISON: 2014 HISTORY: chest pain CT DLP: 1194.9 mGycm CONTRAST: CT scan of the chest, abdomen is performed without Oral Contrast and with IV Contrast, patient inject ed with 100 mL of Isovue 300. CT Chest: LUNGS: Patchy infiltrate left lower lobe suspicious for aspiration pneumonia. There is also mild patc hy density within the left upper lobe. The right lung is clear. No pulmonary nodule or mass is detect ed. No pleural effusion or CT evidence of interstitial lung disease. MEDIASTINUM: Thoracic aorta is of normal caliber. The heart is not enlarged. No evidence for media stinal mass or adenopathy. No evidence for air within the mediastinum. HILAR STRUCTURES: No evidence for mass. No hilar adenopathy is appreciated. OTHER: No significant abnormality. CONTRAST CT ABDOMEN AND PELVIS FINDINGS: LIVER/GB: No calcified gallstones. No space occupying hepatic lesion. Biliary tree is of normal ca liber. PANCREAS: No inflammation. No distinct mass. SPLEEN: No splenic enlargement. No lesion seen. ADRENALS: No nodule. No thickening. KIDNEYS/BLADDER: No hydronephrosis. No nephrolithiasis. No distinct renal mass. LYMPH NODES: No greater than 1cm abdominal or pelvic lymph nodes are appreciated. AORTA: No significant abnormality. OSSEOUS STRUCTURES: No significant abnormality is seen. OTHER: No significant additional abnormality is seen. No evidence for free air perforation of the v iscus. IMPRESSION: 1. Correlate for left-sided aspiration pneumonia. 2. No evidence for hollow visceral perforation or injury. No free air seen.
[2022-04-29] MEDS ORDERED: CEFEPIME 1 GM VIAL IM ONE (16:03)
[2022-04-29] MEDS ORDERED: DEXAMETHASONE SOD PHOSPHATE 10 MG/ML 1 ML VIAL IVP STA (16:03)
[2022-04-29] MEDS ORDERED: metroNIDAZOLE 500 MG TAB PO STA (16:03)
[2022-04-29 17:24] VITALS: BP 109/57; PULSE 74; RESP 18; TEMP 101.1
== END 2022-04-29 17:28 | disposition home or self-care (01) ==
LOC: EC 13:08
DX: J69.0 Pneumonitis due to inhalation of food and vomit (principal); F41.9 Anxiety disorder, unspecified; F12.90 Cannabis use, unspecified, uncomplicated; Z79.899 Other long term (current) drug therapy
CPT/HCPCS: 36415; 93005; 80053; 82150; 83690; 83735; 84484; 85025; 85610; 85730; 87502; 87635; 71260; 74160; 99285; 96374; 96375; 96372; J1100; J0692; J1170; Q9967

== ENCOUNTER 2023-01-10 18:41 | Emergency (ER) | payer BC ==
[2023-01-10 19:00] VITALS: BP 131/78; PULSE 89; RESP 18; TEMP 97.8
[2023-01-10] MEDS ORDERED: LIDOCAINE 1% INJ 10MG/ML (30 ML VIAL-PF) SQ ONE (19:11)
[2023-01-10] MEDS ORDERED: BACITRACIN OINT 1 EACH PACKET TOPICAL ONE (20:02)
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
== END 2023-01-10 20:30 | disposition home or self-care (01) ==
LOC: EC 18:41
DX: S81.811A Laceration without foreign body, right lower leg, initial encounter (principal); F90.9 Attention-deficit hyperactivity disorder, unspecified type; F12.90 Cannabis use, unspecified, uncomplicated; Z79.899 Other long term (current) drug therapy; W45.0XXA Nail entering through skin, initial encounter
CPT/HCPCS: 99282; 12001; J2001

== ENCOUNTER 2023-01-12 23:05 | Emergency (ER) | payer BC ==
[2023-01-12 23:11] VITALS: BP 137/85; PULSE 74; RESP 18; TEMP 98.2
--- NOTE | 2023-01-12 23:35 | ED ---
General Adult HPI - General Chief complaint: Recheck/Abnormal Lab/Rx Stated complaint: Infection Time Seen by Provider: 01/12/23 23:20 Source: patient, RN notes reviewed Mode of arrival: ambulatory Limitations: no limitations - History of Present Illness Initial comments: 27 show male presents emergency department for laceration recheck. Patient had sutures placed 2 days ago patient states she is currently on Bactrim states he had some drainage from the site there was clear to straw-colored or bloody. Patient states that no fever no increasing redness she states it is swollen at the site. - Related Data Home Medications Medication Instructions Recorded Confirmed Citalopram Hydrobromide [CeleXA] 30 mg PO DAILY 03/01/21 04/07/21 Pantoprazole Sodium [Protonix] 40 mg PO DAILY 03/01/21 04/07/21 Sucralfate [Carafate] 1 gm PO ACHS 04/07/21 04/07/21 Previous Rx's Medication Instructions Recorded Levofloxacin [Levaquin] 750 mg PO DAILY 10 Days #10 tab 04/29/22 clindamycin HCL 300 mg PO Q6H 10 Days #40 capsule 04/29/22 predniSONE 50 mg PO DAILY 5 Days #5 tablet 04/29/22 Allergies Allergy/AdvReac Type Severity Reaction Status Date / Time No Known Allergies Allergy Verified 01/10/23 19:00 Review of Systems ROS Statement: Those systems with pertinent positive or pertinent negative responses have been documented in the HPI. ROS Other: All systems not noted in ROS Statement are negative. Past Medical History Past Medical History: No Reported History Additional Past Medical History / Comment(s): stomach ulcer History of Any Multi-Drug Resistant Organisms: MRSA Date of last positivie culture/infection: 2008 MDRO Source:: left leg Past Surgical History: No Surgical Hx Reported Additional Past Surgical History / Comment(s): retinal detachment Past Psychological History: ADD/ADHD, Anxiety Smoking Status: Never smoker Past Alcohol Use History: Daily Past Drug Use History: Marijuana General Exam Limitations: no limitations General appearance: alert, in no apparent distress Head exam: Present: atraumatic, normocephalic, normal inspection Respiratory exam: Present: normal lung sounds bilaterally. Absent: respiratory distress, wheezes, rales, rhonchi, stridor Cardiovascular Exam: Present: regular rate, normal rhythm, normal heart sounds. Absent: systolic murmur, diastolic murmur, rubs, gallop, clicks Extremities exam: Present: other (Right lower leg there is sutures in place minimal border erythema there is some bogginess and serosanguineous drainage) Course Vital Signs 01/12/23 23:07 Temperature 98.2 F Pulse Rate 74 Respiratory 18 Rate Blood Pressure 137/85 O2 Sat by Pulse 99 Oximetry Medical Decision Making - Medical Decision Making Was pt. sent in by a medical professional or institution (JOSELO Carrizales, BENCH BORING MACHINE OPERATOR, urgent care, hospital, or usp...) When possible be specific @ -No Did you speak to anyone other than the patient for history (EMS, parent, family, police, friend...)? What history was obtained from this source @ -No Did you review nursing and triage notes (agree or disagree)? Why? @ -I reviewed and agree with nursing and triage notes Were old charts reviewed (outside hosp., previous admission, EMS record, old EKG, old radiological studies, urgent care reports/EKG's, usp records)? Report findings @ -No old charts were reviewed Differential Diagnosis (chest pain, altered mental status, abdominal pain women, abdominal pain men, vaginal bleeding, weakness, fever, dyspnea, syncope, headache, dizziness, GI bleed, back pain, seizure, CVA, palpatations, mental health, musculoskeletal)? @ -Wound recheck, laceration infection, hematoma, seroma EKG interpreted by me (3pts min.). @ -None X-rays interpreted by me (1pt min.). @ -None done CT interpreted by me (1pt min.). @ -None done U/S interpreted by me (1pt. min.). @ -None done What testing was considered but not performed or refused? (CT, X-rays, U/S, labs)? Why? @ -None What meds were considered but not given or refused? Why? @ -None Did you discuss the management of the patient with other professionals (professionals i.e. JOSELO Carrizales, BENCH BORING MACHINE OPERATOR, lab, RT, psych nurse, social media project manager, hospice team lead, teacher, environmental health officer, case worker)? Give summary @ -No Was smoking cessation discussed for >3mins.? @ -No Was critical care preformed (if so, how long)? @ -No Were there social determinants of health that impacted care today? How? (Homelessness, low income, unemployed, alcoholism, drug addiction, transportation, low edu. Level, literacy, decrease access to med. care, intermediate, rehab)? @ -No Was there de-escalation of care discussed even if they declined (Discuss DNR or withdrawal of care, Hospice)? DNR status @ -No What co-morbidities impacted this encounter? (DM, HTN, Smoking, COPD, CAD, Cancer, CVA, ARF, Chemo, Hep., AIDS, mental health diagnosis, sleep apnea, morbid obesity)? @ -None Was patient admitted / discharged? Hospital course, mention meds given and route, prescriptions, significant lab abnormalities, going to OR and other pertinent info. @ -Discharge patient has no evidence of acute infection is currently on antibiotics and do believe there is a small seroma surrounding the laceration. Patient discharged in stable condition Undiagnosed new problem with uncertain prognosis? @ -No Drug Therapy requiring intensive monitoring for toxicity (Heparin, Nitro, Insulin, Cardizem)? @ -No Were any procedures done? @ -No Diagnosis/symptom? @ -Wound recheck Acute, or Chronic, or Acute on Chronic? @ -Acute Uncomplicated (without systemic symptoms) or Complicated (systemic symptoms)? @ -Uncomplicated Side effects of treatment? @ -No Exacerbation, Progression, or Severe Exacerbation? @ -No Poses a threat to life or bodily function? How? (Chest pain, [place], [place], pneumonia, PE, COPD, DKA, ARF, appy, cholecystitis, CVA, Diverticulitis, Homicidal, Suicidal, threat to staff... and all critical care pts) @ -[No] Disposition Clinical Impression: Encounter for re-check of laceration wound, Seroma Disposition: HOME SELF-CARE Condition: Stable Additional Instructions: Please return to the Emergency Department if symptoms worsen or any other concerns. Is patient prescribed a controlled substance at d/c from ED?: No Referrals: Solitario Merrill MD [Primary Care Provider] - 1-2 days Time of Disposition: 23:35
== END 2023-01-12 23:39 | disposition home or self-care (01) ==
LOC: EC 23:05
DX: Z48.00 Encounter for change or removal of nonsurgical wound dressing (principal); L76.34 Postprocedural seroma of skin and subcutaneous tissue following other procedure; F41.9 Anxiety disorder, unspecified; F12.90 Cannabis use, unspecified, uncomplicated; Z79.899 Other long term (current) drug therapy
CPT/HCPCS: 99283

== ENCOUNTER → 2023-09-22 | Outpatient (CLI) | payer SELFPAY ==
[2023-09-22 13:25] LABS: Basophils % (A) 1 %; Eosinophils # (A) 0.2 k/uL (0-0.7); Eosinophils % (A) 5 %; HCT 34.9 % (39.0-53.0); HGB 10.3 gm/dL (13.0-17.5); Hypochromasia Marked; Lymphocytes # (A) 1.4 k/uL (1.0-4.8); Lymphocytes % (A) 30 %; MCH 21.7 pg (25.0-35.0); MCHC 29.6 g/dL (31.0-37.0); MCV 73.3 fL (80.0-100.0); Mean Platelet Volume 7.6; Microcytosis Slight; Monocytes # (A) 0.3 k/uL (0-1.0); Monocytes % (A) 5 %; Neutrophils # (A) 2.7 k/uL (1.3-7.7); Neutrophils % (A) 57 %; Platelet Count 361 k/uL (150-450); RBC 4.76 m/uL (4.30-5.90); RDW 13.9 % (11.5-15.5); WBC 4.7 k/uL (3.8-10.6)
[2023-09-22 15:12] LABS: Reticulocyte % 1.4 % (0.5-2.0)
[2023-09-22 16:29] LABS: Protein, Total 7.6 g/dL (6.2-8.2)
[2023-09-22 17:29] LABS: % Iron Saturation 3.56 (15.00-50.00)
[2023-09-22 19:26] LABS: HIV 2 AB Non-Reactive (Non-Reactive); HIV AB P24 Non-Reactive (Non-Reactive); HIV P24 AG Non-Reactive (Non-Reactive)
[2023-09-23 17:23] LABS: Albumin 4.19 g/dL (3.80-4.90); Gamma Globulin 1.35 g/dL (0.70-1.50)
== END | disposition home or self-care (01) ==
LOC: LABWHC1 12:32
PROVIDERS: ATTEND Internal Medicine
DX: D64.9 Anemia, unspecified (principal)
CPT/HCPCS: 36415; 82607; 82728; 82746; 83540; 83550; 83615; 84165; 85025; 85045; 86038; 87390